=== PATIENT | female | born 1940 | race Caucasian/White ===

== ENCOUNTER 2018-02-22 10:59 | Emergency (ER) | payer MEDICARE, OTHER ==
[~2018-02-22] VITALS: Ht 172.7 cm; Wt 63.1 kg
[2018-02-22] MEDS ORDERED: SODIUM CHLORIDE FLUSH 10ML SYR IVF ONE (11:30)
[2018-02-22 11:49] LABS: BASOPHILS # (AUTO) 0.03 x10^3/uL (0-0.1); BASOPHILS % (AUTO) 1 % (0-1); EOSINOPHILS # (AUTO) 0.16 x10^3/uL (0-0.4); EOSINOPHILS % (AUTO) 3 % (1-7); LYMPHOCYTES # (AUTO) 1.59 x10^3/uL (1-3.4); LYMPHOCYTES % (AUTO) 28 % (22-44); MD NO; MEAN CORPUSCULAR HEMOGLOBIN 31.6 pg (27.0-34.8); MEAN CORPUSCULAR HGB CONC 33.1 g/dL (32.4-35.8); MEAN CORPUSCULAR VOLUME 95.4 fL (80-100); MEAN PLATELET VOLUME 7.7 fL (7.4-10.4); MONOCYTES # (AUTO) 0.68 x10^3/uL (0.2-0.8); MONOCYTES % (AUTO) 12 % (2-9); NEUTROPHILS # (AUTO) 3.13 x10^3/uL (1.8-6.8); NEUTROPHILS % (AUTO) 56 % (42-75); PLATELET COUNT 269 x10^3/uL (130-400); RED BLOOD COUNT 3.32 x10^6/uL (3.82-5.3); RED CELL DISTRIBUTION WIDTH 14.4 % (9.6-15.2)
[2018-02-22 12:01] LABS: ALANINE AMINOTRANSFERASE 13 U/L (12-78); ALBUMIN 3.2 g/dL (3.4-5.0); ANION GAP 5 mmol/L (5-15); CHLORIDE 113 mmol/L (98-107); CREATININE 1.27 mg/dL (0.55-1.02)
[2018-02-22 12:03] LABS: ALKALINE PHOSPHATASE 50 U/L (45-117); BILIRUBIN,TOTAL 0.5 mg/dL (0.2-1.0)
[2018-02-22] MEDS ORDERED: SODIUM CHLORIDE 0.9%, 500ML IVBOLUS ONE (13:00)
[2018-02-22 14:09] VITALS: BP 130/75
== END 2018-02-22 14:47 | disposition home or self-care (01) ==
LOC: ED 13:43
DX: R19.7 Diarrhea, unspecified (principal); N28.9 Disorder of kidney and ureter, unspecified; F03.90 Unspecified dementia, unspecified severity, without behavioral disturbance, psychotic disturbance, mood disturbance, and anxiety; E03.9 Hypothyroidism, unspecified; J45.909 Unspecified asthma, uncomplicated
CPT/HCPCS: 36415; 80053; 83690; 85025; 99284

== ENCOUNTER 2019-03-01 13:52 | Emergency (ER) | payer MEDICARE, OTHER ==
[~2019-03-01] VITALS: Ht 160 cm; Wt 65.0 kg
--- NOTE | 2019-03-01 14:33 | NUR ---
SON IN LAW AT BEDSIDE. PT RESIDES AT [facility] AND WAS LETHARGIC IN BED AFTER LUNCH SO TRANSPORTED VIA AMBULANCE. PT AT BASELINE ON ARRIVAL TO ER, TALKING WITH STAFF AND FAMILY. CONFUSED AND ALERTX2
[2019-03-01 14:48] LABS: BASOPHILS # (AUTO) 0.03 x10^3/uL (0-0.1); BASOPHILS % (AUTO) 1 % (0-1); EOSINOPHILS # (AUTO) 0.25 x10^3/uL (0-0.4); EOSINOPHILS % (AUTO) 4 % (1-7); LYMPHOCYTES # (AUTO) 1.13 x10^3/uL (1-3.4); LYMPHOCYTES % (AUTO) 20 % (22-44); MD NO; MEAN CORPUSCULAR HEMOGLOBIN 30.6 pg (27.0-34.8); MEAN CORPUSCULAR HGB CONC 31.8 g/dL (32.4-35.8); MEAN CORPUSCULAR VOLUME 96.1 fL (80-100); MEAN PLATELET VOLUME 7.1 fL (7.4-10.4); MONOCYTES # (AUTO) 0.91 x10^3/uL (0.2-0.8); MONOCYTES % (AUTO) 16 % (2-9); NEUTROPHILS # (AUTO) 3.47 x10^3/uL (1.8-6.8); NEUTROPHILS % (AUTO) 60 % (42-75); PLATELET COUNT 235 x10^3/uL (130-400); RED BLOOD COUNT 3.79 x10^6/uL (3.82-5.3); RED CELL DISTRIBUTION WIDTH 16.9 % (9.6-15.2)
[2019-03-01 14:59] LABS: ALBUMIN 2.5 g/dL (3.4-5.0); ANION GAP 6 mmol/L (5-15); CALCIUM 8.2 mg/dL (8.5-10.1); CHLORIDE 108 mmol/L (98-107)
--- NOTE | 2019-03-01 15:04 | NUR ---
AMBULATED TO BATHROOM WITH ASSISTANCE AND OBTAINED URINE SAMPLE.
[2019-03-01 15:06] LABS: ALANINE AMINOTRANSFERASE 11 U/L (12-78); ALKALINE PHOSPHATASE 56 U/L (45-117); BILIRUBIN,TOTAL 0.4 mg/dL (0.2-1.0); TOTAL PROTEIN 5.9 g/dL (6.4-8.2); TROPONIN I < 0.015 ng/mL (0.000-0.045)
[2019-03-01 15:15] LABS: MICROSCOPIC AUTO
[2019-03-01 15:17] LABS: CULTURE INDICATED? YES
--- NOTE | 2019-03-01 15:40 | NUR ---
DR SAGE EXAMINING PT AND SPEAKING WITH HER AND FAMILY
[2019-03-01 15:54] VITALS: BP 117/67
--- NOTE | 2019-03-01 16:46 | NUR ---
PT ASSISTED TO WHEELCHAIR AND TO DISCHARGE WINDOW WITH SON IN LAW
== END 2019-03-01 16:50 | disposition home or self-care (01) ==
LOC: ED 16:44
DX: J18.9 Pneumonia, unspecified organism (principal); E78.00 Pure hypercholesterolemia, unspecified; J45.909 Unspecified asthma, uncomplicated; E03.9 Hypothyroidism, unspecified; G89.29 Other chronic pain; Z87.891 Personal history of nicotine dependence; W18.30XA Fall on same level, unspecified, initial encounter; Y93.89 Activity, other specified; Y92.009 Unspecified place in unspecified non-institutional (private) residence as the place of occurrence of the external cause; Y99.8 Other external cause status
CPT/HCPCS: 36415; 70450; 71045; 80053; 81001; 84484; 85025; 87086; 93005; 99284

== ENCOUNTER 2019-03-03 21:20 | Emergency (ER) | payer MEDICARE, OTHER ==
[~2019-03-03] VITALS: Ht 160 cm; Wt 58.0 kg
[2019-03-03] MEDS ORDERED: SODIUM CHLORIDE 0.9% 1,000ML IVBOLUS ONE (22:00)
[2019-03-03] MEDS ORDERED: SODIUM CHLORIDE FLUSH 10ML SYR IVF ONE (22:00)
[2019-03-03 22:18] LABS: BASOPHILS # (AUTO) 0.02 x10^3/uL (0-0.1); BASOPHILS % (AUTO) 0 % (0-1); EOSINOPHILS # (AUTO) 0.47 x10^3/uL (0-0.4); EOSINOPHILS % (AUTO) 8 % (1-7); LYMPHOCYTES # (AUTO) 1.41 x10^3/uL (1-3.4); LYMPHOCYTES % (AUTO) 24 % (22-44); MD NO; MEAN CORPUSCULAR HGB CONC 31.8 g/dL (32.4-35.8); MEAN CORPUSCULAR VOLUME 97.5 fL (80-100); MEAN PLATELET VOLUME 7.2 fL (7.4-10.4); MONOCYTES # (AUTO) 0.98 x10^3/uL (0.2-0.8); MONOCYTES % (AUTO) 17 % (2-9); NEUTROPHILS # (AUTO) 2.96 x10^3/uL (1.8-6.8); NEUTROPHILS % (AUTO) 51 % (42-75); PLATELET COUNT 269 x10^3/uL (130-400); RED BLOOD COUNT 3.82 x10^6/uL (3.82-5.3); RED CELL DISTRIBUTION WIDTH 16.8 % (9.6-15.2)
[2019-03-03 22:26] LABS: INTERNATIONAL NORMALIZED RATIO 1.06 (0.93-1.1); PROTHROMBIN TIME 11.1 Seconds (9.6-11.5)
[2019-03-03 22:28] LABS: ALANINE AMINOTRANSFERASE 6 U/L (12-78); ALBUMIN 2.3 g/dL (3.4-5.0); ANION GAP 4 mmol/L (5-15); CHLORIDE 109 mmol/L (98-107); CREATININE 0.99 mg/dL (0.55-1.02)
[2019-03-03 22:33] LABS: ALKALINE PHOSPHATASE 53 U/L (45-117); BILIRUBIN,TOTAL 0.2 mg/dL (0.2-1.0); TOTAL PROTEIN 5.5 g/dL (6.4-8.2); TROPONIN I < 0.015 ng/mL (0.000-0.045)
[2019-03-03 23:08] LABS: MICROSCOPIC NOT IND
--- NOTE | 2019-03-03 23:10 | NUR ---
urinary catheterization performed with assistance of Marita SHEPARD. Pt sample walked to lab.
[2019-03-03 23:17] LABS: CULTURE INDICATED? NO
--- NOTE | 2019-03-03 23:46 | NUR ---
pt family at bs. pt had incontinent episode. pt bedding changed and patient clean. pt provided with portable heater for comfort.
--- NOTE | 2019-03-04 00:24 | NUR ---
PT FAMILY WISHES TO DRIVE PT BACK TO SNF. PT BASELINE ORIENTED PER FAMILY. AWAITING D/C INSTRUCTIONS AND F/U PLAN FROM ERP AT THIS TIME. PT FAMILY AT BS TO HELP DRESS PT AND MOBILIZE TO VEHICLE FOR D/C HOME.
--- NOTE | 2019-03-04 00:33 | NUR ---
PT D/C WITH D/C SUMMARY. WHEELCHAIR GIVEN TO FAMILY TO USE FOR D/C TO VEHICLE. PT ASSISTED TO WHEELCHAIR FOR D/C BACK TO [facility] WITH FAMILY. PT VSS AND UPDATED PRIOR TO D/C. PT VSS. PT FAMIL DENIES ANY OTHER NEEDS PERTAINING TO THIS VISIT.
[2019-03-04 00:49] VITALS: BP 127/87
== END 2019-03-04 00:52 | disposition home or self-care (01) ==
LOC: ED 22:22
DX: E86.0 Dehydration (principal); F03.90 Unspecified dementia, unspecified severity, without behavioral disturbance, psychotic disturbance, mood disturbance, and anxiety; R53.1 Weakness; R41.82 Altered mental status, unspecified; E78.00 Pure hypercholesterolemia, unspecified; J45.909 Unspecified asthma, uncomplicated; E03.9 Hypothyroidism, unspecified; M54.9 Dorsalgia, unspecified; G89.29 Other chronic pain
CPT/HCPCS: 36415; 70450; 71045; 80053; 80164; 81003; 82140; 83880; 84443; 84484; 85025; 85610; 85730; 99284